=== PATIENT | female | born 1955 | race Caucasian/White ===

== ENCOUNTER 2017-04-06 13:53 | Emergency (ER) | payer OTHER ==
[~2017-04-06] VITALS: Ht 162.6 cm; Wt 57.0 kg
[2017-04-06 13:54] VITALS: BP 173/77; TEMP 98.5
--- NOTE | 2017-04-06 14:52 | RADRPT ---
EXAM DATE/TIME: 04/06/2017 14:21 [facility] COMPARISON: No previous studies available for comparison. INDICATIONS : Dizziness. MEDICAL HISTORY : None. SURGICAL HISTORY : None. ENCOUNTER: Initial ACUITY: 3 days PAIN SCORE: 2/10 LOCATION: Bilateral chest FINDINGS: PA and lateral views of the chest demonstrate the lungs to be symmetrically aerated without evidence of mass, infiltrate or effusion. The cardiomediastinal contours are unremarkable. Degenerative agrawal es and scoliosis of the thoraco-lumbar spine are noted. CONCLUSION: No acute cardiopulmonary disease. Degenerative changes and scoliosis of the thoraco-l umbar spine. Dmaon Meier MD on April 06, 2017 at 14:49 Board Certified Radiologist. This report was verified electronically.
[2017-04-06 15:00] LABS: AUTOMATED NEUTROPHIL # 2.1 TH/MM3 (1.8-7.7); BASOPHIL % 0.5 % (0.0-2.0); EOSINOPHIL % 0.1 % (0.0-4.0); HEMATOCRIT 36.2 % (35.0-46.0); HEMOGLOBIN 12.1 GM/DL (11.6-15.3); LYMPH % 32.1 % (9.0-44.0); LYMPHOCYTE # 1.2 TH/MM3 (1.0-4.8); MEAN CELL VOLUME 90.5 FL (80.0-100.0); MEAN CORPUSCULAR HEMOGLOBIN 30.3 PG (27.0-34.0); MEAN CORPUSCULAR HGB CONC 33.5 % (32.0-36.0); MEAN PLATELET VOLUME 7.7 FL (7.0-11.0); MONO % 9.6 % (0.0-8.0); MONOCYTE # 0.3 TH/MM3 (0-0.9); NEUT % 57.7 % (16.0-70.0); PLATELET COUNT 206 TH/MM3 (150-450); WHITE BLOOD COUNT 3.6 TH/MM3 (4.0-11.0)
[2017-04-06 15:05] LABS: BILIRUBIN, URINE NEG (NEG); BLOOD, URINE NEG (NEG); GLUCOSE,URINE NEG (NEG); KETONE, URINE NEG (NEG); NITRITE,URINE NEG (NEG); URINE COLOR LIGHT-YELLOW (YELLW/STRAW); URINE LEUKOCYTE ESTERASE NEG (NEG)
[2017-04-06 15:17] LABS: PROTHROMBIN TIME - PATIENT 10.5 SEC (9.8-11.6)
[2017-04-06 15:31] LABS: ALBUMIN 4.2 GM/DL (3.4-5.0); AST (GOT) 23 U/L (15-37); BICARBONATE 26.2 MEQ/L (21.0-32.0); BLOOD UREA NITROGEN 15 MG/DL (7-18); CALCIUM 8.9 MG/DL (8.5-10.1); CHLORIDE 107 MEQ/L (98-107); CREATININE 0.58 MG/DL (0.50-1.00); GLOMERULAR FILTRATION RATE 105 ML/MIN (>89); GLUCOSE,RANDOM 100 MG/DL (74-106); MAGNESIUM 2.3 MG/DL (1.5-2.5); SODIUM (NA) 140 MEQ/L (136-145)
[2017-04-06 15:35] LABS: ALKALINE PHOSPHATASE 77 U/L (45-117); ALT (GPT) 25 U/L (10-53); TOTAL BILIRUBIN ADULT 0.3 MG/DL (0.2-1.0); TOTAL PROTEIN 8.4 GM/DL (6.4-8.2); TROPONIN I LESS THAN 0.02 NG/ML (0.02-0.05)
--- NOTE | 2017-04-06 15:53 | RADRPT ---
EXAM DATE/TIME: 04/06/2017 15:32 [facility] COMPARISON: No previous studies available for comparison. INDICATIONS : Head pain due to dizziness. RADIATION DOSE: 36.13 CTDIvol (mGy) MEDICAL HISTORY : Hypertension. SURGICAL HISTORY : None. ENCOUNTER: Initial ACUITY: 2 days PAIN SCALE: 3/10 LOCATION: Bilateral cranial TECHNIQUE: Multiple contiguous axial images were obtained of the head. Using automated exposure control and adj ustment of the mA and/or kV according to patient size, radiation dose was kept as low as reasonably a chievable to obtain optimal diagnostic quality images. DICOM format image data is available electro nically for review and comparison. FINDINGS: CEREBRUM: The ventricles are normal for age. No evidence of midline shift, mass lesion, hemorrhage or acute in farction. No extra-axial fluid collections are seen. POSTERIOR FOSSA: The cerebellum and brainstem are intact. The 4th ventricle is midline. The cerebellopontine angle i s unremarkable. EXTRACRANIAL: The visualized portion of the orbits is intact. SKULL: The calvaria is intact. No evidence of skull fracture. CONCLUSION: No acute disease. Damon Meier MD on April 06, 2017 at 15:50 Board Certified Radiologist. This report was verified electronically.
[2017-04-06] MEDS ORDERED: VERA1TAB10 PO (16:48)
[2017-04-06] MEDS ORDERED: OMEP40CA2 PO (16:48)
[2017-04-06] MEDS ORDERED: MYCO500 PO (16:48)
[2017-04-06] MEDS ORDERED: REST0.05 EACH EYE (16:48)
[2017-04-06] MEDS ORDERED: DIOV160T6 PO (16:48)
--- NOTE | 2017-04-06 17:18 | PD ---
HPI Chief Complaint: Dizziness Time Seen by Provider: 16:30 Travel History International Travel<30 days: No Contact w/Intl Traveler<30days: No Traveled to known affect area: No History of Present Illness HPI 61-year-old female presents to the emergency department sent by urgent care with complaint of dizziness for a few days, shortness of breath for a few days, fatigue times a couple weeks and lightheadedness for a few days. Says she feels like she "can't get a full breath." Denies syncopal episode. Denies chest pain, fevers, vomiting, diarrhea, abdominal pain, urinary symptoms. Reports sinus pressure and postnasal drip for the past 4-5 days. Denies cough. Shortness of breath is worse with going upstairs. Recently traveled here from [place] about 2-1/2-3 weeks ago. Denies history of DVT/PE. Denies leg edema or leg pain. Denies anticoagulant therapy. Denies hormone therapy. Denies history of known cardiac arrhythmia. Has not taken any medications or tried any treatments to alleviate her symptoms. No known relieving factors. 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 Has history of leaky heart valve, hypertension, scleroderma, Raynaud's. Has no other medical complaints. No other modifying factors or associated signs and symptoms. PFSH Past Medical History Autoimmune Disease: Yes (scleraderma, raynods ) Cardiovascular Problems: Yes (HTN) Hypertension: Yes Medical other: Yes (mixed connective tissue disease ) Past Surgical History Other Surgery: Yes (foot ) Social History Alcohol Use: Yes (occ) Tobacco Use: No Substance Use: No Allergies-Medications (Allergen,Severity, Reaction): Coded Allergies: Sulfa (Sulfonamide Antibiotics) (Verified Allergy, Severe, Edema, 04/06/17) levofloxacin (Verified Allergy, Severe, Edema, 04/06/17) Reported Meds & Prescriptions Reported Meds & Active Scripts Active Azithromycin 250 Mg Tab 250 Mg PO DIRECTED Take 2 tabs (500 mg) on day 1 then 1 tab daily x 4 days. Reported Restasis Opth (Cyclosporine Opth) 0.05% Emul 1 Drop EACH EYE BID Verapamil ER (Verapamil HCl) 180 Mg Tab 180 Mg PO DAILY Diovan (Valsartan) 160 Mg Tab 160 Mg PO DAILY Cellcept (Mycophenolate Mofetil) 500 Mg Tab 500 Mg PO QID Omeprazole 40 Mg Cap 40 Mg PO DAILY Review of Systems Except as stated in HPI: all other systems reviewed are Neg Physical Exam Narrative GENERAL: Well-nourished, well-developed female patient, in no acute distress; afebrile, nontoxic-appearing SKIN: Warm and dry. No rash. HEAD: Atraumatic. Normocephalic. EYES: Pupils equal and round. No scleral icterus. No injection or drainage. ENT: Mucosa pink and moist. No erythema or exudates. No uvular edema. No uvular , palatal, or tonsillar deviation. Airway patent. EARS: Bilateral pinnae and external canals appear within normal limits. Bilateral tympanic membranes without erythema, dullness or perforation. NECK: Trachea midline. No lymphadenopathy. CARDIOVASCULAR: Irregular, regular rate and rhythm. No murmur appreciated. RESPIRATORY: No accessory muscle use. Clear to auscultation. Breath sounds equal bilaterally. No retractions or tachypnea. GASTROINTESTINAL: Abdomen soft, non-tender, nondistended. Hepatic and splenic margins not palpable. Bowel sounds are active 4 quadrants. MUSCULOSKELETAL: No obvious deformities. No clubbing. No cyanosis. No edema. NEUROLOGICAL: Awake and alert. Oriented 3. No obvious cranial nerve deficits. Motor grossly within normal limits. Normal speech. Moves all extremities. 5/5 strength to all extremities. PSYCHIATRIC: Appropriate mood and affect; insight and judgment normal. Data Data Last Documented VS Vital Signs Date Time Temp Pulse Resp B/P (MAP) Pulse Ox O2 Delivery O2 Flow Rate FiO2 04/06/17 18:23 172/72 (105) 04/06/17 18:22 57 18 04/06/17 18:01 98 04/06/17 13:54 98.5 Room Air Orders Orders Electrocardiogram (04/06/17 14:04) Complete Blood Count With Diff (04/06/17 14:04) Comprehensive Metabolic Panel (04/06/17 14:04) Magnesium (Mg) (04/06/17 14:04) Ckmb (Isoenzyme) Profile (04/06/17 14:04) Troponin I (04/06/17 14:04) Act Partial Throm Time (Ptt) (04/06/17 14:04) Prothrombin Time / Inr (Pt) (04/06/17 14:04) Urinalysis - C+S If Indicated (04/06/17 14:04) Chest, Pa & Lat (04/06/17 14:04) Ct Brain W/O Iv Contrast(Rout) (04/06/17 14:04) Orthostatic Vital Signs (04/06/17 17:16) D-Dimer (04/06/17 17:38) Ed Discharge Order (04/06/17 19:04) Labs Laboratory Tests Test 04/06/17 14:35 White Blood Count 3.6 TH/MM3 Red Blood Count 4.00 MIL/MM3 Hemoglobin 12.1 GM/DL Hematocrit 36.2 % Mean Corpuscular Volume 90.5 FL Mean Corpuscular Hemoglobin 30.3 PG Mean Corpuscular Hemoglobin Concent 33.5 % Red Cell Distribution Width 13.0 % Platelet Count 206 TH/MM3 Mean Platelet Volume 7.7 FL Neutrophils (%) (Auto) 57.7 % Lymphocytes (%) (Auto) 32.1 % Monocytes (%) (Auto) 9.6 % Eosinophils (%) (Auto) 0.1 % Basophils (%) (Auto) 0.5 % Neutrophils # (Auto) 2.1 TH/MM3 Lymphocytes # (Auto) 1.2 TH/MM3 Monocytes # (Auto) 0.3 TH/MM3 Eosinophils # (Auto) 0.0 TH/MM3 Basophils # (Auto) 0.0 TH/MM3 CBC Comment DIFF FINAL Differential Comment Prothrombin Time 10.5 SEC Prothromb Time International Ratio 1.0 RATIO Activated Partial Thromboplast Time 26.8 SEC D-Dimer Quantitative (PE/DVT) 0.24 MG/L FEU Urine Color LIGHT-YELLOW Urine Turbidity CLEAR Urine pH 5.0 Urine Specific [place] 1.006 Urine Protein NEG mg/dL Urine Glucose (UA) NEG mg/dL Urine Ketones NEG mg/dL Urine Occult Blood NEG Urine Nitrite NEG Urine Bilirubin NEG Urine Urobilinogen LESS THAN 2.0 MG/DL Urine Leukocyte Esterase NEG Urine RBC LESS THAN 1 /hpf Urine WBC LESS THAN 1 /hpf Microscopic Urinalysis Comment CULT NOT INDICATED Blood Urea Nitrogen 15 MG/DL Creatinine 0.58 MG/DL Random Glucose 100 MG/DL Total Protein 8.4 GM/DL Albumin 4.2 GM/DL Calcium Level 8.9 MG/DL Magnesium Level 2.3 MG/DL Alkaline Phosphatase 77 U/L Aspartate Amino Transf (AST/SGOT) 23 U/L Alanine Aminotransferase (ALT/SGPT) 25 U/L Total Bilirubin 0.3 MG/DL Sodium Level 140 MEQ/L Potassium Level 3.6 MEQ/L Chloride Level 107 MEQ/L Carbon Dioxide Level 26.2 MEQ/L Anion Gap 7 MEQ/L Estimat Glomerular Filtration Rate 105 ML/MIN Total Creatine Kinase 100 U/L Troponin I LESS THAN 0.02 NG/ML MDM Medical Decision Making Medical Screen Exam Complete: Yes Emergency Medical Condition: Yes Medical Record Reviewed: Yes Differential Diagnosis Vertigo, dizziness, allergic rhinitis, URI, electrolyte imbalance, arrhythmia Narrative Course Patient with complaints of dizziness, shortness of breath, fatigue, lightheadedness. CBC, CMP, troponin, coags, urinalysis, CT head, chest x-ray, EKG ordered in triage. 1700: CBC, CMP unremarkable. Troponin less than 0.02. Coags, urinalysis, CT head, chest x-ray unremarkable. EKG with incomplete RBBB; sinus ami; reviewed by Dr. Link; discussed with Dr. Patton and he recommends d-dimer to r/o PE. D-dimer order and orthostatic VS ordered. 1858: D-dimer 0.24. Patient requesting antibiotics for possible sinus infection; says she does not want amoxicillin. Discussed meclizine for dizziness. Azithromycin prescribed for home. Instructed patient to follow up with primary care provider. Patient verbalizes understanding and agreement with treatment plan. Patient is medically cleared and stable for discharge. Discussed reasons to return to the emergency department. Patient agrees with treatment plan. The patients vital signs are stable and the patient is stable for outpatient follow-up and treatment. Patient discharged home, stable and in no acute distress. Diagnosis Primary Impression: Shortness of breath Additional Impressions: Abnormal EKG Dizziness Fatigue Qualified Codes: R53.83 - Other fatigue URI (upper respiratory infection) Qualified Codes: J06.9 - Acute upper respiratory infection, unspecified Referrals: Senior Courtroom Clerk Primary Care Physician Patient Instructions: Dizziness (ED), Fatigue (ED), General Instructions, Shortness of Breath (ED), Upper Respiratory Infection (ED) Additional Instructions: Antibiotics as prescribed for upper respiratory symptoms [id number] meclizine as directed and as needed for dizziness/vertigo Ibuprofen or Tylenol as directed and as needed to reduce fever [id number] cold/flu medications as directed and as needed for symptom management Get plenty of sleep/rest Drink plenty of fluids to prevent dehydration; such as Gatorade, Powerade, Pedialyte [place] diet to encourage nutrition such as crackers, fruit, applesauce, toast, soup etc. 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 Prov: Jessica Clancy 04/06/17 Disposition: 01 DISCHARGE HOME Condition: Stable Jessica Clancy Apr 06, 2017 17:18
[2017-04-06 18:01] VITALS: PULSE 60; RESP 18; O2SAT 98
[2017-04-06 18:22] VITALS: BP_SYST 165; BP_SYST 167; BP_DIAS 72; BP_DIAS 77; RESP 18
[2017-04-06 18:23] VITALS: BP 172/72
[2017-04-06] MEDS ORDERED: AMOX500C PO (19:03)
[2017-04-06] MEDS ORDERED: AZIT250T3 PO (19:10)
--- NOTE | 2017-04-07 20:18 | EKG ---
Date Performed: 04/06/2017 Time Performed: 14:35:28 PTAGE: 61 years EKG: SINUS BRADYCARDIA INCOMPLETE RIGHT BUNDLE BRANCH BLOCK SEPTAL MYOCARDIAL INFARCTION ABNORMA L ECG NO PREVIOUS TRACING DOCTOR: Christiano Denney Interpretating Date/Time 04/07/2017 20:14:59
== END 2017-04-06 19:20 | disposition home or self-care (01) ==
LOC: NEPD 13:53
DX: R06.02 Shortness of breath (principal); R94.31 Abnormal electrocardiogram [ECG] [EKG]; R42 Dizziness and giddiness; R53.83 Other fatigue; J06.9 Acute upper respiratory infection, unspecified; I10 Essential (primary) hypertension
CPT/HCPCS: 70450; 71046; 80053; 81001; 82550; 83735; 84484; 85025; 85379; 85610; 85730; 93005

== ENCOUNTER 2017-04-18 04:06 | Emergency (ER) | payer OTHER ==
[~2017-04-18] VITALS: Ht 162.6 cm; Wt 55.0 kg
[~2017-04-18 04:06] MED LIST: AZIT250T3 PO; DIOV160T6 PO; MYCO500 PO; OMEP40CA2 PO; REST0.05 EACH EYE; VERA1TAB10 PO
[2017-04-18] MEDS ORDERED: SODIUM CHLORIDE 0.9% FLUSH 10 ML FLUSH IV FLUSH PRN (04:30)
--- NOTE | 2017-04-18 04:31 | PD ---
HPI . Abdominal pain Chief Complaint: Abdominal Pain Time Seen by Provider: 04:27 Travel History International Travel<30 days: No Contact w/Intl Traveler<30days: No Traveled to known affect area: No History of Present Illness HPI This patient presents with chief complaint of abdominal pain. Onset was during the night tonight. She describes an intermittent, sharp, lower abdominal pain. She has some associated nausea. She denies any urinary tract symptoms such as dysuria, frequency or urgency. She has not been running a fever. She denies any diarrhea. She is currently pain-free. She states that she has a history of scleroderma and has been having difficulty swallowing for a while. She has an appointment to be seen by gastroenterology tomorrow for further evaluation of dysphagia. PFSH Past Medical History Autoimmune Disease: Yes (scleraderma, raynods ) Cardiovascular Problems: Yes (HTN) Diminished Hearing: No GERD: Yes Hypertension: Yes Tetanus Vaccination: < 5 Years Influenza Vaccination: Yes ?: Not LMP: menapause Past Surgical History Other Surgery: Yes (left foot ) Social History Alcohol Use: Yes (occ) Tobacco Use: No Substance Use: No Allergies-Medications (Allergen,Severity, Reaction): Coded Allergies: Sulfa (Sulfonamide Antibiotics) (Verified Allergy, Severe, Edema, 04/18/17) levofloxacin (Verified Allergy, Severe, Edema, 04/18/17) Reported Meds & Prescriptions Reported Meds & Active Scripts Active Azithromycin 250 Mg Tab 250 Mg PO DIRECTED Take 2 tabs (500 mg) on day 1 then 1 tab daily x 4 days. Reported Restasis Opth (Cyclosporine Opth) 0.05% Emul 1 Drop EACH EYE BID Verapamil ER (Verapamil HCl) 180 Mg Tab 180 Mg PO DAILY Diovan (Valsartan) 160 Mg Tab 160 Mg PO DAILY Cellcept (Mycophenolate Mofetil) 500 Mg Tab 500 Mg PO QID Omeprazole 40 Mg Cap 40 Mg PO DAILY Review of Systems Except as stated in HPI: all other systems reviewed are Neg General / Constitutional: No: Fever, Chills Gastrointestinal: Positive: Nausea, Abdominal Pain, Other (dysphagia), No: Vomiting, Diarrhea Genitourinary: No: Urgency, Frequency, Dysuria Physical Exam Narrative GENERAL: Awake and alert and in no acute distress. SKIN: warm/dry. Normal color and turgor. HEAD: Normocephalic. Atraumatic. EYES: Pupils equal and round. No scleral icterus. No injection or drainage. ENT: No nasal bleeding or discharge. Mucous membranes pink and moist. NECK: Trachea midline. Full range of motion without pain.. CARDIOVASCULAR: Regular rate and rhythm. Heart sounds normal. RESPIRATORY: No accessory muscle use. Clear to auscultation. Breath sounds equal bilaterally. GASTROINTESTINAL: Abdomen soft. Nontender. Bowel sounds present. Nondistended. MUSCULOSKELETAL: No obvious deformities. NEUROLOGICAL: Awake and alert. No obvious cranial nerve deficits. Motor grossly within normal limits. Normal speech. PSYCHIATRIC: Appropriate mood and affect; insight and judgment normal. Data Data Orders Orders Basic Metabolic Panel (Bmp) (04/18/17 04:27) Complete Blood Count With Diff (04/18/17 04:27) Urinalysis - C+S If Indicated (04/18/17 04:27) Iv Access Insert/Monitor (04/18/17 04:27) Ecg Monitoring (04/18/17 04:27) Oximetry (04/18/17 04:27) Sodium Chloride 0.9% Flush (Ns Flush) (04/18/17 04:30) Labs Laboratory Tests Test 04/18/17 04:45 White Blood Count 3.9 TH/MM3 Red Blood Count 3.85 MIL/MM3 Hemoglobin 11.7 GM/DL Hematocrit 34.1 % Mean Corpuscular Volume 88.8 FL Mean Corpuscular Hemoglobin 30.4 PG Mean Corpuscular Hemoglobin Concent 34.2 % Red Cell Distribution Width 13.2 % Platelet Count 204 TH/MM3 Mean Platelet Volume 7.6 FL Neutrophils (%) (Auto) 61.6 % Lymphocytes (%) (Auto) 24.0 % Monocytes (%) (Auto) 13.5 % Eosinophils (%) (Auto) 0.4 % Basophils (%) (Auto) 0.5 % Neutrophils # (Auto) 2.4 TH/MM3 Lymphocytes # (Auto) 0.9 TH/MM3 Monocytes # (Auto) 0.5 TH/MM3 Eosinophils # (Auto) 0.0 TH/MM3 Basophils # (Auto) 0.0 TH/MM3 CBC Comment DIFF FINAL Differential Comment Urine Color COLORLESS Urine Turbidity CLEAR Urine pH 7.5 Urine Specific [place] 1.001 Urine Protein NEG mg/dL Urine Glucose (UA) NEG mg/dL Urine Ketones NEG mg/dL Urine Occult Blood NEG Urine Nitrite NEG Urine Bilirubin NEG Urine Urobilinogen LESS THAN 2.0 MG/DL Urine Leukocyte Esterase NEG Urine WBC LESS THAN 1 /hpf Microscopic Urinalysis Comment CULT NOT INDICATED Blood Urea Nitrogen 4 MG/DL Creatinine 0.54 MG/DL Random Glucose 92 MG/DL Calcium Level 9.4 MG/DL Sodium Level 131 MEQ/L Potassium Level 3.8 MEQ/L Chloride Level 95 MEQ/L Carbon Dioxide Level 27.1 MEQ/L Anion Gap 9 MEQ/L Estimat Glomerular Filtration Rate 114 ML/MIN [facility] Medical Decision Making Medical Screen Exam Complete: Yes Emergency Medical Condition: Yes Differential Diagnosis Differential diagnosis of abdominal pain includes but is not limited to gastritis, pancreatitis, hepatitis, gastroenteritis, gallbladder disease, constipation, urinary retention, UTI, peptic ulcer disease, diverticulitis or appendicitis Narrative Course This patient presents with intermittent lower abdominal pain which started during the night tonight. Symptoms have come and gone and are currently absent. Her pain is associated with some nausea. Physical exam is benign. I am checking a CBC, BMP and UA. CBC & BMP Diagram 04/18/17 04:45 Calcium Level 9.4 UA is negative for infection. The patient will be discharged home with instructions to follow up with gastroenterology later today as planned. Diagnosis Primary Impression: Abdominal pain Qualified Codes: R10.30 - Lower abdominal pain, unspecified Additional Impressions: Nausea Dysphagia Qualified Codes: R13.10 - Dysphagia, unspecified Patient Instructions: Abdominal Pain (ED), General Instructions Disposition: 01 DISCHARGE HOME Condition: Stable Ivette Braden MD Apr 18, 2017 04:31
[2017-04-18 04:55] LABS: AUTOMATED NEUTROPHIL # 2.4 TH/MM3 (1.8-7.7); BASOPHIL % 0.5 % (0.0-2.0); BILIRUBIN, URINE NEG (NEG); BLOOD, URINE NEG (NEG); EOSINOPHIL % 0.4 % (0.0-4.0); GLUCOSE,URINE NEG (NEG); HEMATOCRIT 34.1 % (35.0-46.0); HEMOGLOBIN 11.7 GM/DL (11.6-15.3); KETONE, URINE NEG (NEG); LYMPHOCYTE # 0.9 TH/MM3 (1.0-4.8); MEAN CELL VOLUME 88.8 FL (80.0-100.0); MEAN CORPUSCULAR HEMOGLOBIN 30.4 PG (27.0-34.0); MEAN CORPUSCULAR HGB CONC 34.2 % (32.0-36.0); MEAN PLATELET VOLUME 7.6 FL (7.0-11.0); MONO % 13.5 % (0.0-8.0); MONOCYTE # 0.5 TH/MM3 (0-0.9); NEUT % 61.6 % (16.0-70.0); NITRITE,URINE NEG (NEG); PH, URINE 7.5 (5.0-8.5); PLATELET COUNT 204 TH/MM3 (150-450); RED BLOOD COUNT 3.85 MIL/MM3 (4.00-5.30); RED CELL DISTRIBUTION WIDTH 13.2 % (11.6-17.2); URINE COLOR COLORLESS (YELLW/STRAW); URINE LEUKOCYTE ESTERASE NEG (NEG); WHITE BLOOD COUNT 3.9 TH/MM3 (4.0-11.0)
[2017-04-18 05:23] LABS: BICARBONATE 27.1 MEQ/L (21.0-32.0); CALCIUM 9.4 MG/DL (8.5-10.1); CREATININE 0.54 MG/DL (0.50-1.00)
== END 2017-04-18 05:40 | disposition home or self-care (01) ==
LOC: NEPE 04:06
DX: R10.30 Lower abdominal pain, unspecified (principal); R11.0 Nausea; R13.10 Dysphagia, unspecified; I10 Essential (primary) hypertension; K21.9 Gastro-esophageal reflux disease without esophagitis; M34.9 Systemic sclerosis, unspecified; Z88.2 Allergy status to sulfonamides; Z79.899 Other long term (current) drug therapy
CPT/HCPCS: 80048; 81001; 85025; 99283

== ENCOUNTER 2017-05-03 01:33 | Emergency (ER) | payer OTHER ==
[~2017-05-03] VITALS: Ht 162.6 cm; Wt 72.0 kg
[2017-05-03 01:38] VITALS: BP 182/79; PULSE 71; RESP 16; TEMP 98.3; O2SAT 98
--- NOTE | 2017-05-03 02:18 | PD ---
HPI Chief Complaint: Neuro Symptoms/ Deficits Time Seen by Provider: 01:54 Travel History International Travel<30 days: No Contact w/Intl Traveler<30days: No Traveled to known affect area: No History of Present Illness HPI 61-year-old female complains of lower extremity feeling heavy, sinus pressure, shaking chills, trouble swallowing. Patient has history of scleroderma and has problems with swallowing for many years. Patient states that the symptoms are worse recently. Patient was seen by GI specialist recently and had barium swallow procedure done recently. Patient reportedly the barium swallow was normal. Patient was advised to have upper GI endoscopy done. Patient was scheduled for endoscopy done locally, however patient canceled the procedure and awaiting upper GI endoscopy to be done by her physician at home. Patient states that she started having heavy feeling in the lower extremity, and a pressure and shaking sensation and chills occasionally today. Patient was seen by local physician for this symptom earlier today. Patient denies any headache. Patient denies any chest pain. Patient states that she has occasionally shortness of breath. Patient denies abdominal pain. Patient denies any nausea vomiting diarrhea. Patient denies any dysuria frequency. Patient denies any vaginal discharge or bleeding. PFSH Past Medical History Autoimmune Disease: Yes (scleraderma, raynods ) Cardiovascular Problems: Yes (HTN) Diminished Hearing: No GERD: Yes Hypertension: Yes Influenza Vaccination: Yes ?: Not Past Surgical History Other Surgery: Yes (left foot ) Social History Alcohol Use: Yes (occ) Tobacco Use: No Substance Use: No Allergies-Medications (Allergen,Severity, Reaction): Coded Allergies: Sulfa (Sulfonamide Antibiotics) (Verified Allergy, Severe, Edema, 04/18/17) levofloxacin (Verified Allergy, Severe, Edema, 04/18/17) Reported Meds & Prescriptions Reported Meds & Active Scripts Active Azithromycin 250 Mg Tab 250 Mg PO DIRECTED Take 2 tabs (500 mg) on day 1 then 1 tab daily x 4 days. Reported Restasis Opth (Cyclosporine Opth) 0.05% Emul 1 Drop EACH EYE BID Verapamil ER (Verapamil HCl) 180 Mg Tab 180 Mg PO DAILY Diovan (Valsartan) 160 Mg Tab 160 Mg PO DAILY Cellcept (Mycophenolate Mofetil) 500 Mg Tab 500 Mg PO QID Omeprazole 40 Mg Cap 40 Mg PO DAILY Review of Systems General / Constitutional: No: Fever Eyes: No: Visual changes HENT: No: Headaches Cardiovascular: No: Chest Pain or Discomfort Respiratory: No: Shortness of Breath Gastrointestinal: No: Abdominal Pain Genitourinary: No: Dysuria Musculoskeletal: No: Pain Skin: No Rash Neurologic: No: Weakness Psychiatric: No: Depression Endocrine: No: Polydipsia Hematologic/Lymphatic: No: Easy Bruising Physical Exam Narrative GENERAL: Well-nourished, well-developed patient. SKIN: Focused skin assessment warm/dry. HEAD: Normocephalic. EYES: No scleral icterus. No injection or drainage. NECK: Supple, trachea midline. No JVD or lymphadenopathy. CARDIOVASCULAR: Regular rate and rhythm without murmurs, gallops, or rubs. RESPIRATORY: Breath sounds equal bilaterally. No accessory muscle use. GASTROINTESTINAL: Abdomen soft, non-tender, nondistended. MUSCULOSKELETAL: No cyanosis, or edema. BACK: Nontender without obvious deformity. No CVA tenderness. Neurologic exam normal. Data Data Last Documented VS Vital Signs Date Time Temp Pulse Resp B/P (MAP) Pulse Ox O2 Delivery O2 Flow Rate FiO2 05/03/17 03:44 68 16 138/73 (94) 98 Room Air 05/03/17 01:38 98.3 Orders Orders Complete Blood Count With Diff (05/03/17 02:08) Comprehensive Metabolic Panel (05/03/17 02:08) Urinalysis - C+S If Indicated (05/03/17 02:08) Chest, Single Ap (05/03/17 02:08) Iv Access Insert/Monitor (05/03/17 02:08) Ecg Monitoring (05/03/17 02:08) Oximetry (05/03/17 02:08) Labs Laboratory Tests Test 05/03/17 03:00 05/03/17 03:35 White Blood Count 3.8 TH/MM3 Red Blood Count 3.67 MIL/MM3 Hemoglobin 11.4 GM/DL Hematocrit 31.6 % Mean Corpuscular Volume 86.3 FL Mean Corpuscular Hemoglobin 31.1 PG Mean Corpuscular Hemoglobin Concent 36.1 % Red Cell Distribution Width 13.0 % Platelet Count 177 TH/MM3 Mean Platelet Volume 7.2 FL Neutrophils (%) (Auto) 67.7 % Lymphocytes (%) (Auto) 18.3 % Monocytes (%) (Auto) 13.5 % Eosinophils (%) (Auto) 0.2 % Basophils (%) (Auto) 0.3 % Neutrophils # (Auto) 2.6 TH/MM3 Lymphocytes # (Auto) 0.7 TH/MM3 Monocytes # (Auto) 0.5 TH/MM3 Eosinophils # (Auto) 0.0 TH/MM3 Basophils # (Auto) 0.0 TH/MM3 CBC Comment AUTO DIFF Differential Comment AUTO DIFF CONFIRMED Platelet Estimate LOW Platelet Morphology Comment NORMAL Ovalocytes 1+ Blood Urea Nitrogen 7 MG/DL Creatinine 0.50 MG/DL Random Glucose 92 MG/DL Total Protein 7.8 GM/DL Albumin 4.3 GM/DL Calcium Level 9.1 MG/DL Alkaline Phosphatase 73 U/L Aspartate Amino Transf (AST/SGOT) 31 U/L Alanine Aminotransferase (ALT/SGPT) 28 U/L Total Bilirubin 0.5 MG/DL Sodium Level 126 MEQ/L Potassium Level 3.5 MEQ/L Chloride Level 91 MEQ/L Carbon Dioxide Level 27.6 MEQ/L Anion Gap 7 MEQ/L Estimat Glomerular Filtration Rate 125 ML/MIN Urine Color COLORLESS Urine Turbidity CLEAR Urine pH 5.0 Urine Specific [place] 1.001 Urine Protein NEG mg/dL Urine Glucose (UA) NEG mg/dL Urine Ketones 10 mg/dL Urine Occult Blood NEG Urine Nitrite NEG Urine Bilirubin NEG Urine Urobilinogen LESS THAN 2.0 MG/DL Urine Leukocyte Esterase NEG Urine RBC LESS THAN 1 /hpf Urine Squamous Epithelial Cells <1 /hpf Microscopic Urinalysis Comment CULT NOT INDICATED MDM Medical Decision Making Medical Screen Exam Complete: Yes Emergency Medical Condition: Yes Interpretation(s) Last Impressions Chest X-Ray 05/03/17 0208 Signed Impressions: Service Date/Time: Wednesday, May 03, 2017 02:14 - CONCLUSION: No acute cardiopulmonary abnormality is identified. Lyndon Boggs MD 4:13 AM. CBC WBC 3.8. Hemoglobin 11.5 hematocrit 31.6. Normal differential. CMP within normal limits. UA is negative. Differential Diagnosis Differential diagnoses including viral syndrome, anxiety, electrolyte imbalance. Narrative Course 61-year-old female with symptoms are feeling heaviness on the lower extremity, sinus pressure, shaking sensation, chills. Diagnosis Primary Impression: Anxiety Patient Instructions: General Instructions Additional Instructions: Follow-up local physician. Return as needed. Vistaril as needed. Med/Other Pt SpecificInfo: Prescription(s) given, No Change to Meds Scripts Hydroxyzine Pamoate (Vistaril) 25 Mg Cap 25 MG PO TID Y for ANXIETY, #21 CAP 0 Refills Prov: Yobany Szymanski MD 05/03/17 Disposition: 01 DISCHARGE HOME Condition: Stable Yobany Szymanski MD May 03, 2017 02:18
--- NOTE | 2017-05-03 02:38 | RADRPT ---
EXAM DATE/TIME: 05/03/2017 02:14 [place] COMPARISON: CHEST PA & LAT, April 06, 2017, 14:21. INDICATIONS : Short of breath. MEDICAL HISTORY : Hypertension. SURGICAL HISTORY : None. ENCOUNTER: Initial ACUITY: 1 day PAIN SCORE: 0/10 LOCATION: Bilateral chest FINDINGS: Portable AP view of the chest demonstrates a normal-sized cardiac silhouette. No effusion, consolidat ion, or pneumothorax is visualized. The bones and soft tissues demonstrate no acute abnormality. EKG lines overlie the patient. CONCLUSION: No acute cardiopulmonary abnormality is identified. Lyndon Boggs MD on May 03, 2017 at 2:36 Board Certified Radiologist. This report was verified electronically.
[2017-05-03 02:58] VITALS: RESP 16
[2017-05-03 03:12] LABS: AUTOMATED NEUTROPHIL # 2.6 TH/MM3 (1.8-7.7); BASOPHIL % 0.3 % (0.0-2.0); EOSINOPHIL % 0.2 % (0.0-4.0); HEMATOCRIT 31.6 % (35.0-46.0); HEMOGLOBIN 11.4 GM/DL (11.6-15.3); LYMPH % 18.3 % (9.0-44.0); LYMPHOCYTE # 0.7 TH/MM3 (1.0-4.8); MEAN CELL VOLUME 86.3 FL (80.0-100.0); MEAN CORPUSCULAR HEMOGLOBIN 31.1 PG (27.0-34.0); MEAN PLATELET VOLUME 7.2 FL (7.0-11.0); MONO % 13.5 % (0.0-8.0); MONOCYTE # 0.5 TH/MM3 (0-0.9); NEUT % 67.7 % (16.0-70.0); PLATELET COUNT 177 TH/MM3 (150-450); RED BLOOD COUNT 3.67 MIL/MM3 (4.00-5.30); WHITE BLOOD COUNT 3.8 TH/MM3 (4.0-11.0)
[2017-05-03 03:13] LABS: MEAN CORPUSCULAR HGB CONC 36.1 % (32.0-36.0)
[2017-05-03 03:27] LABS: ALBUMIN 4.3 GM/DL (3.4-5.0); ALT (GPT) 28 U/L (10-53); AST (GOT) 31 U/L (15-37); BICARBONATE 27.6 MEQ/L (21.0-32.0); BLOOD UREA NITROGEN 7 MG/DL (7-18); CALCIUM 9.1 MG/DL (8.5-10.1); CHLORIDE 91 MEQ/L (98-107); GLOMERULAR FILTRATION RATE 125 ML/MIN (>89); GLUCOSE,RANDOM 92 MG/DL (74-106); SODIUM (NA) 126 MEQ/L (136-145)
[2017-05-03 03:29] LABS: ALKALINE PHOSPHATASE 73 U/L (45-117); TOTAL BILIRUBIN ADULT 0.5 MG/DL (0.2-1.0); TOTAL PROTEIN 7.8 GM/DL (6.4-8.2)
[2017-05-03 03:44] VITALS: BP 138/73; PULSE 68; RESP 16; O2SAT 98
[2017-05-03 03:47] LABS: OVALOCYTES 1+ (NORMAL)
[2017-05-03 03:54] LABS: BILIRUBIN, URINE NEG (NEG); BLOOD, URINE NEG (NEG); GLUCOSE,URINE NEG (NEG); KETONE, URINE 10 mg/dL (NEG); NITRITE,URINE NEG (NEG); SQUAMOUS EPITHELIAL CELL URINE <1 /hpf (0-5); URINE COLOR COLORLESS (YELLW/STRAW); URINE LEUKOCYTE ESTERASE NEG (NEG)
[2017-05-03] MEDS ORDERED: VIST25CA PO (04:19)
== END 2017-05-03 04:28 | disposition home or self-care (01) ==
LOC: NEPC 01:33
DX: F41.9 Anxiety disorder, unspecified (principal); I10 Essential (primary) hypertension; K21.9 Gastro-esophageal reflux disease without esophagitis
CPT/HCPCS: 71045; 80053; 81001; 85025; 99284